=== PATIENT | male | born 2000 | race Caucasian/White ===

== ENCOUNTER 2023-08-02 04:18 | Emergency (ER) | payer OTHER ==
[2023-08-02] MEDS ORDERED: ALBUTEROL SO4 2.5/IPRATROPIUM 0.5 INH SOL 3 ML VIAL.NEB. NEB ONE (04:24)
[2023-08-02] MEDS ORDERED: methylPREDNISolone NA SUCC 125 MG/2 ML VIAL ONE (04:28)
[2023-08-02] MEDS ORDERED: MAGNESIUM SULFATE IN WATER 2 GM/50 ML IVPB IVPB ONE ×2 (04:29→04:46)
[2023-08-02 04:30] VITALS: TEMP 98.4; BMI 20.3
[2023-08-02] MEDS ORDERED: EPINEPHrine/PF 1 MG/1 ML (1:1,000) AMPULE ONE (04:33)
[2023-08-02] MEDS ORDERED: FAMOTIDINE 20 MG/50 ML IVPB 20 MG/50 ML MG IVPB ONE ×2 (04:33→04:46)
[2023-08-02] MEDS ORDERED: EPINEPHrine 1:1,000 1,000 MCG/ML ML SQ ONE (04:46)
[2023-08-02] MEDS ORDERED: methylPREDNISolone NA SUCC 125 MG/2 ML VIAL IVPB ONE (04:46)
[2023-08-02] MEDS: ALBUTEROL SO4 2.5/IPRATROPIUM 0.5 INH SOL 3 ML VIAL.NEB. NEB SCH ×5 (05:14→06:34)
[2023-08-02 05:59] LABS: BASO % 0.2 % (0-2.0); EOS % 3.1 % (0-4.5); HEMATOCRIT 54.7 % (35.4-49); HEMOGLOBIN 18.3 GM/dL (11.7-16.9); LYMPH % 49.6 % (8-40); MCH 30.8 pg (25.7-33.7); MCHC 33.5 g/dl (32.0-35.9); MEAN CELL VOLUME 91.9 fl (80-96); MEAN PLT VOLUME 9.6 fl (7.5-11.1); MONO % 5.3 % (3.8-10.2); NEUT % 41.8 % (42.8-82.8); PLATELET COUNT 278 10^3/uL (134-434); RBC 5.96 M/mm3 (4.00-5.60); RDW 12.6 % (11.9-15.9); WHITE BLOOD COUNT 14.4 K/mm3 (4.0-10.0)
[2023-08-02 06:16] LABS: POTASSIUM 3.7 mmol/L (3.5-5.1)
[2023-08-02 06:19] LABS: BLOOD UREA NITROGEN 14.4 mg/dL (7-18); MAGNESIUM 2.1 mg/dL (1.8-2.4)
[2023-08-02 06:22] LABS: CREATININE 1.5 mg/dL (0.55-1.3)
[2023-08-02 06:24] LABS: BILIRUBIN,TOTAL 0.6 mg/dL (0.2-1)
[2023-08-02 06:44] LABS: CALCIUM 8.8 mg/dL (8.5-10.1)
[2023-08-02 07:37] VITALS: RESP 18
[2023-08-02 09:52] VITALS: BP 111/60; PULSE 94
== END 2023-08-02 09:55 | disposition home or self-care (01) ==
LOC: JER 04:18
PROC: 3E03329 Introduction of Other Anti-infective into Peripheral Vein, Percutaneous Approach (ICD-10-PCS; principal; 2023-08-02)
PROC: 3E033GC Introduction of Other Therapeutic Substance into Peripheral Vein, Percutaneous Approach (ICD-10-PCS; 2023-08-02)
PROC: 3E033GC Introduction of Other Therapeutic Substance into Peripheral Vein, Percutaneous Approach (ICD-10-PCS; 2023-08-02)
DX: R06.02 Shortness of breath (principal); R21 Rash and other nonspecific skin eruption; T78.2XXA Anaphylactic shock, unspecified, initial encounter
CPT/HCPCS: 36415; 71045-TC-FY; 80053; 83735; 84484; 85025; 93005; 93010; 99285-25